=== PATIENT | male | born 1975 | race Caucasian/White ===

== ENCOUNTER 2018-09-13 19:47 | Emergency (ER) | payer OTHER ==
[~2018-09-13] VITALS: Ht 170.2 cm; Wt 77.3 kg
[2018-09-13 19:59] VITALS: BP 134/86
--- NOTE | 2018-09-13 20:08 | NUR ---
PT AMBULATED TO BED #10
--- NOTE | 2018-09-13 20:08 | NUR ---
PT PRESENTS TO ED WITH RIGHT SIDE GROIN PAIN, BILAT EYE PAIN AND BILAT EAR PAIN X1 DAY. 6/10 PAIN. STATES RED EYES IN AM WITH DRAINAGE. NO REDNESS OR DRAINAGE AT THIS TIME. BILAT EAR CANNALS WITHIN NORMAL LIMITS WITH TYMPANIC MEMBRANE CLEAR AND CONCAVE. NO REDNESS, EDEMA, BRUISING TO RIGHT SIDE OF GROIN. AFEBRILE WITH VSS. ER MD AWARE. POSITIONED IN BED FOR COMFORT. CONTINUE TO MONITOR.
[2018-09-13] MEDS ORDERED: KETOROLAC 30 MG/ML VIAL IM ONE (20:40)
--- NOTE | 2018-09-13 20:52 | NUR ---
X-Ray at bedside.
--- NOTE | 2018-09-13 21:06 | NUR ---
EYE EXAM. L EYE 20/25, R EYE 20/20
[2018-09-13 22:18] VITALS: BP 134/86
--- NOTE | 2018-09-13 22:18 | NUR ---
DISCHARE PAPERS GIVEN TO PT. 0/10 PAIN WITH VSS. VISION INTACT. AMBULATORY WITH STEADY GAIT. ACCOMPANIED BY . RX OF LORATADINE, IBUPROFEN, CORTIZONE TOPICAL CREME, AND TRAMADOL GIVEN. SIDE EFFECTS EXPLAINED. INSTRUCTED TO F/U WITH PCP AND WHEN TO RETURN TO ER. PT VERBALLIZED UNDERSTANDING OF DC INSTRUCTIONS. ALL QUESTIONS ANSWERED.
== END 2018-09-13 22:18 | disposition home or self-care (01) ==
LOC: MED 19:47
DX: M25.551 Pain in right hip (principal); L50.0 Allergic urticaria
CPT/HCPCS: 72170; 73502; 96372; 99283; J1885; Q0092

== ENCOUNTER 2021-05-07 12:47 | Emergency (ER) | payer OTHER, SELFPAY ==
[~2021-05-07] VITALS: Ht 168.9 cm; Wt 79.4 kg
--- NOTE | 2021-05-07 13:32 | NUR ---
pt name called in lobby and outside, no answer at this time
--- NOTE | 2021-05-07 13:36 | NUR ---
called pt phone, no answer at this time
[2021-05-07 13:56] VITALS: BP 147/87
[2021-05-07] MEDS ORDERED: ACET-10509 PO (14:42)
[2021-05-07 15:31] VITALS: BP 111/68
--- NOTE | 2021-05-07 15:32 | NUR ---
Patient discharged with v/s stable. Written and verbal after care instructions given and explained. Patient verbalized understanding. Ambulatory with steady gait. All questions addressed prior to discharge. Advised to follow up with PMD.
== END 2021-05-07 15:32 | disposition home or self-care (01) ==
LOC: MED 12:47
DX: R51.9 Headache, unspecified (principal); Z20.822 Contact with and (suspected) exposure to COVID-19; Z79.899 Other long term (current) drug therapy
CPT/HCPCS: 87804; 99283; U0003